=== PATIENT | female | born 1965 ===

== ENCOUNTER 2016-12-21 18:34 | Emergency (ER) | payer OTHER ==
[~2016-12-21] VITALS: Ht 162.6 cm; Wt 62.0 kg
[2016-12-21 18:38] VITALS: BP 114/65; PULSE 70; RESP 20; TEMP 98.2; O2SAT 97
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
[2016-12-21] MEDS ORDERED: IBUP-232 PO (19:05)
[2016-12-21] MEDS ORDERED: CYCL5TAB PO (19:05)
[2016-12-21 19:27] VITALS: BP 110/68
== END 2016-12-21 19:30 | disposition home or self-care (01) ==
LOC: PHEFT 18:34
DX: M54.6 Pain in thoracic spine (principal); R25.2 Cramp and spasm; G44.319 Acute post-traumatic headache, not intractable; V53.5XXA Driver of pick-up truck or van injured in collision with car, pick-up truck or van in traffic accident, initial encounter
CPT/HCPCS: 99283

== ENCOUNTER 2017-04-04 11:59 | Observation (INO) | payer OTHER ==
[2017-04-04] VITALS (10 sets, daily range): BP systolic 94–125; BP diastolic 51–61; PULSE 60–82; RESP 16–20; TEMP 97.6–98.4; O2SAT 98–100
[~2017-04-04] VITALS: Ht 162.6 cm; Wt 65.0 kg
[~2017-04-04 11:59] MED LIST: CYCL5TAB PO; IBUP-232 PO
[2017-04-04] MEDS ORDERED: ASPIRIN 325 MG TAB PO ONE (12:30)
[2017-04-04] MEDS ORDERED: NITROGLYCERIN 0.4 MG SL 25 TABS/BTL SL ONE (12:30)
[2017-04-04] MEDS ORDERED: SODIUM CHLORIDE 0.9% FLUSH 10 ML FLUSH IVF PRN (12:30)
[2017-04-04 12:49] LABS: AUTOMATED NEUTROPHIL # 3.1 TH/MM3 (1.8-7.7); BASOPHIL % 0.3 % (0.0-2.0); EOSINOPHIL # 0.4 TH/MM3 (0-0.4); EOSINOPHIL % 5.8 % (0.0-4.0); HEMATOCRIT 39.8 % (35.0-46.0); HEMO FLAGS DIFF FINAL; LYMPHOCYTE # 2.5 TH/MM3 (1.0-4.8); MEAN CORPUSCULAR HEMOGLOBIN 29.4 PG (27.0-34.0); MEAN CORPUSCULAR HGB CONC 33.4 % (32.0-36.0); MONO % 9.5 % (0.0-8.0); NEUT % 46.4 % (16.0-70.0); PLATELET COUNT 203 TH/MM3 (150-450); RED BLOOD COUNT 4.52 MIL/MM3 (4.00-5.30); RED CELL DISTRIBUTION WIDTH 12.6 % (11.6-17.2); WHITE BLOOD COUNT 6.7 TH/MM3 (4.0-11.0)
[2017-04-04 12:58] LABS: PROTHROMBIN TIME - PATIENT 10.5 SEC (9.8-11.6)
--- NOTE | 2017-04-04 13:06 | PD ---
HPI Chief Complaint: Chest Pain Time Seen by Provider: 13:02 Travel History International Travel<30 days: No Contact w/Intl Traveler<30days: No Traveled to known affect area: No History of Present Illness HPI 51-year-old female that presents to the ED for evaluation of chest pain. Per patient she's had this chest pain since . Per patient on she had more right-sided chest discomfort any went away so she didn't think much of it. Per patient she today was more gas or something else. Since yesterday she developed this left-sided pain that today radiated to the left back. Per patient she has a heaviness feeling to the left arm. She denies any symptoms like this before. She has no history of cardiac disease. She does have a history of secondhand smoking from significant other. Per patient she does have a history of menopause. No family history of heart disease. No shortness of breath with the pain. Per patient the pain is not severe and is 3 out of 10 when a for her to notice it. No other control use. No recent travel. No trauma. Pain is not reproducible with touch. Patient he took an aspirin yesterday but she doesn't routinely take one. She did not took one today. 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 [facility] Past Medical History Asthma: Yes Diminished Hearing: No Musculoskeletal: Yes (BACK AND NECK PAIN HX) Reproductive: Yes Tetanus Vaccination: > 5 Years Influenza Vaccination: No ?: Not Menopausal: Yes Past Surgical History Gynecologic Surgery: Yes Social History Alcohol Use: No Tobacco Use: No Substance Use: No (PT DENIES ) Allergies-Medications (Allergen,Severity, Reaction): Coded Allergies: No Known Allergies (Unverified , 04/04/17) Reported Meds & Prescriptions Reported Meds & Active Scripts Active No Active Prescriptions or Reported Medications Review of Systems Except as stated in HPI: all other systems reviewed are Neg Physical Exam Narrative GENERAL: SKIN: Warm and dry. HEAD: Atraumatic. Normocephalic. EYES: Pupils equal and round. No scleral icterus. No injection or drainage. ENT: No nasal bleeding or discharge. Mucous membranes pink and moist. Tongue is midline. No uvula deviation. NECK: Trachea midline. No JVD. CARDIOVASCULAR: Regular rate and rhythm. No murmurs, S3, S4. Chest pain is not reproducible with touch. RESPIRATORY: No accessory muscle use. Clear to auscultation. Breath sounds equal bilaterally. GASTROINTESTINAL: Abdomen soft, non-tender, nondistended. Hepatic and splenic margins not palpable. MUSCULOSKELETAL: Extremities without clubbing, cyanosis, or edema. No obvious deformities. Full range of motion of the upper and lower extremities bilaterally. 2+ pulses bilaterally. NEUROLOGICAL: Awake and alert. No obvious cranial nerve deficits. Motor grossly within normal limits. Five out of 5 muscle strength in the arms and legs. Normal speech. PSYCHIATRIC: Appropriate mood and affect; insight and judgment normal. Data Data Last Documented VS Vital Signs Date Time Temp Pulse Resp B/P Pulse Ox O2 Delivery O2 Flow Rate FiO2 04/04/17 12:40 78 16 98/58 100 Room Air 04/04/17 12:02 97.6 Orders Electrocardiogram (04/04/17 12:19) Basic Metabolic Panel (Bmp) (04/04/17 12:19) Ckmb (Isoenzyme) Profile (04/04/17 12:19) Complete Blood Count With Diff (04/04/17 12:19) Magnesium (Mg) (04/04/17 12:19) Prothrombin Time / Inr (Pt) (04/04/17 12:19) Act Partial Throm Time (Ptt) (04/04/17 12:19) Troponin I (04/04/17 12:19) Chest, Single Ap (04/04/17 12:19) Ecg Monitoring (04/04/17 12:19) Bilateral Bp Monitoring (04/04/17 12:19) Iv Access Insert/Monitor (04/04/17 12:19) Oximetry (04/04/17 12:19) Oxygen Administration (04/04/17 12:19) Aspirin (Aspirin) (04/04/17 12:30) Sodium Chloride 0.9% Flush (Ns Flush) (04/04/17 12:30) Nitroglycerin Sl (Nitrostat Sl) (04/04/17 12:30) Admit Order (Ed Use Only) (04/04/17 14:14) Labs Laboratory Tests Test 04/04/17 12:35 White Blood Count 6.7 TH/MM3 Red Blood Count 4.52 MIL/MM3 Hemoglobin 13.3 GM/DL Hematocrit 39.8 % Mean Corpuscular Volume 88.0 FL Mean Corpuscular Hemoglobin 29.4 PG Mean Corpuscular Hemoglobin 33.4 % Concent Red Cell Distribution Width 12.6 % Platelet Count 203 TH/MM3 Mean Platelet Volume 9.6 FL Neutrophils (%) (Auto) 46.4 % Lymphocytes (%) (Auto) 38.0 % Monocytes (%) (Auto) 9.5 % Eosinophils (%) (Auto) 5.8 % Basophils (%) (Auto) 0.3 % Neutrophils # (Auto) 3.1 TH/MM3 Lymphocytes # (Auto) 2.5 TH/MM3 Monocytes # (Auto) 0.6 TH/MM3 Eosinophils # (Auto) 0.4 TH/MM3 Basophils # (Auto) 0.0 TH/MM3 CBC Comment DIFF FINAL Differential Comment Prothrombin Time 10.5 SEC Prothromb Time International 1.0 RATIO Ratio Activated Partial 28.0 SEC Thromboplast Time Sodium Level 140 MEQ/L Potassium Level 4.5 MEQ/L Chloride Level 106 MEQ/L Carbon Dioxide Level 28.0 MEQ/L Anion Gap 6 MEQ/L Blood Urea Nitrogen 14 MG/DL Creatinine 0.47 MG/DL Estimat Glomerular Filtration 139 ML/MIN Rate Random Glucose 95 MG/DL Calcium Level 9.3 MG/DL Magnesium Level 2.3 MG/DL Total Creatine Kinase 94 U/L Troponin I LESS THAN 0.02 NG/ML MDM Medical Decision Making Medical Screen Exam Complete: Yes Emergency Medical Condition: Yes Medical Record Reviewed: Yes Interpretation(s) EKG shows sinus rhythm with no sign of acute ischemia or arrhythmia read by me and attending. CBC & BMP Diagram 04/04/17 12:35 troponin and CKMB WNL Last Impressions Chest X-Ray 04/04/17 1219 Signed Impressions: Service Date/Time: March 12:38 - CONCLUSION: No acute disease. Tyrone Call MD Differential Diagnosis Chest pain versus a typical chest pain versus ACS versus angina versus pneumonia versus electrolyte abnormality Narrative Course 51-year-old female that presents to the ED for evaluation of chest pain. Patient was properly examined and was found to have signs and symptoms concerning for ACS. Labs and imaging ordered. Patient was given aspirin as well as nitroglycerin with improvement of discomfort on the chest. Labs and imaging here were essentially unremarkable. Patient does have the risk factor of age. Her symptoms concerning for heart disease and she has not had a stress test. Do recommend admission to the chest pain center. Patient is in agreement with this plan. Patient was admitted to the chest pain center. Diagnosis Primary Impression: Chest pain in adult Admitting Information Admitting Physician Requests: Observation Scripts No Active Prescriptions or Reported Meds Colt Cherry Apr 04, 2017 13:06
[2017-04-04 13:10] LABS: ANION GAP 6 MEQ/L (5-15); BLOOD UREA NITROGEN 14 MG/DL (7-18); CHLORIDE 106 MEQ/L (98-107); GLOMERULAR FILTRATION RATE 139 ML/MIN (>89); MAGNESIUM 2.3 MG/DL (1.5-2.5); POTASSIUM 4.5 MEQ/L (3.5-5.1); SODIUM (NA) 140 MEQ/L (136-145)
[2017-04-04 13:16] LABS: CREATINE KINASE 94 U/L (26-192)
--- NOTE | 2017-04-04 13:30 | RADRPT ---
EXAM DATE/TIME: 04/04/2017 12:38 [facility] COMPARISON: No previous studies available for comparison. INDICATIONS : Pain started yesterday on the right side of the chest, today pain is on the left side of the chest, n onsmoker, no chest surgery MEDICAL HISTORY : None. SURGICAL HISTORY : None. ENCOUNTER: Initial ACUITY: 2 days PAIN SCORE: 8/10 LOCATION: Bilateral chest FINDINGS: A single view of the chest demonstrates the lungs to be symmetrically aerated without evidence of mas s, infiltrate or effusion. The cardiomediastinal contours are unremarkable. Mild degenerative change s and scoliosis of the thoracic spine are noted. CONCLUSION: No acute disease. Tyrone Call MD on April 04, 2017 at 13:27 Board Certified Radiologist. This report was verified electronically.
--- NOTE | 2017-04-04 14:02 | EKG ---
Date Performed: 04/04/2017 Time Performed: 12:39:12 PTAGE: 51 years EKG: BASELINE ARTIFACT PRESENT. Sinus rhythm NORMAL ECG NO PREVIOUS TRACING DOCTOR: Mich Keenan Interpretating Date/Time 04/04/2017 14:00:36
[2017-04-04] MEDS ORDERED: ONDANSETRON HCL 4 MG/2 ML VIAL IV PRN (14:45)
[2017-04-04] MEDS ORDERED: ACETAMINOPHEN 500 MG CPLT PO PRN (14:45)
[2017-04-04] MEDS ORDERED: NITROGLYCERIN 0.4 MG SL 25 TABS/BTL SL PRN (14:45)
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
[2017-04-04] MEDS ORDERED: RESP: ALBUTEROL 2.5 MG/3 ML NEB (PRN) NEB (16:00)
[2017-04-04 16:26] LABS: CREATINE KINASE 91 U/L (26-192)
[2017-04-04] MEDS: RESP: ALBUTEROL 2.5 MG/3 ML NEB (SCH) NEB ×2 (16:30→20:44)
[2017-04-04 20:42] LABS: CREATINE KINASE 179 U/L (26-192)
[2017-04-04 20:55] LABS: CKMB 0.5 NG/ML (0.5-3.6)
[2017-04-04] MEDS: SODIUM CHLORIDE 0.9% FLUSH 10 ML FLUSH IV FLUSH SCH (21:00)
[2017-04-05 00:22] VITALS: BP 87/54; PULSE 77; RESP 18; TEMP 98; O2SAT 98
[2017-04-05 00:36] VITALS: BP 92/59
[2017-04-05] MEDS: RESP: ALBUTEROL 2.5 MG/3 ML NEB (SCH) NEB ×2 (04:24→10:00)
[2017-04-05 05:37] VITALS: BP 94/58; PULSE 72; RESP 22; TEMP 98.1; O2SAT 99
[2017-04-05 07:21] VITALS: BP 104/54; PULSE 73; RESP 16; TEMP 96.8; O2SAT 99
[2017-04-05 08:05] VITALS: PULSE 69
[2017-04-05] MEDS ORDERED: ASPIRIN 325 MG TAB PO SCH (09:00)
[2017-04-05] MEDS ORDERED: KETOROLAC TROMETHAMINE 30 MG/ML (IVP) VIAL IV PUSH ONE (09:00)
--- NOTE | 2017-04-05 09:33 | EKG ---
Date Performed: 04/04/2017 Time Performed: 21:06:07 PTAGE: 51 years EKG: Sinus rhythm POSSIBLE RIGHT VENTRICULAR CONDUCTION DELAY BORDERLINE ECG PREVIOUS TRACING : 04/04/2017 15.29 Since previous tracing, no significant change noted DOCTOR: Michael Colbert Interpretating Date/Time 04/05/2017 09:30:37
--- NOTE | 2017-04-05 09:37 | TR ---
Date Performed: 04/04/2017 Time Performed: 18:21:52 DOCTOR: Michael Colbert DRUG LIST: CLINICAL HISTORY: CHEST PAIN REASON FOR TEST: REASON FOR ENDING: OBSERVATION: CONCLUSION: Pieter protocol completed. Stopped sec to reaching target heart rate and leg fatigue. Maximum WB=627 Target HR Achieved=86.0% Maximum DO=204/62 Total Exercise Time=5:36. No worsening marti st pain. St segment upsloping. Good exercise tolerance. Normal bp response. Recovery quick and unrema rkable. COMMENTS: Patient exercised using the Pieter protocol. No electrocardiographic changes were seen to suggest ischemia. Hemodynamic response to exercise was normal. No significant arrhythmia was prese nt.
--- NOTE | 2017-04-05 09:37 | EKG ---
Date Performed: 04/04/2017 Time Performed: 15:29:16 PTAGE: 51 years EKG: SINUS BRADYCARDIA BORDERLINE ECG PREVIOUS TRACING : 04/04/2017 12.39 Since previous tracing, no significant change noted DOCTOR: Michael Colbert Interpretating Date/Time 04/05/2017 09:35:09
[2017-04-05] MEDS: SODIUM CHLORIDE 0.9% FLUSH 10 ML FLUSH IV FLUSH SCH (11:22)
--- NOTE | 2017-04-05 11:27 | RADRPT ---
EXAM DATE/TIME: 04/05/2017 08:49 [facility] COMPARISON: No previous studies available for comparison. INDICATIONS : Left sided chest pain for one day. Angina DOSE: 25.4 mCi Tc99m Myoview at stress 8.1 mCi Tc99m Myoview at rest REST HEART RATE: 87 BPM TARGET HEART RATE: 143 BPM MAX HEART RATE: 150 BPM REST BLOOD PRESSURE: 104/70 mmHg MAX BLOOD PRESSURE: 140/68 mmHg EJECTION FRACTION: > 70% MEDICAL HISTORY : Asthma. SURGICAL HISTORY : None. ENCOUNTER: Initial ACUITY: 1 day PAIN SCALE: 3/10 LOCATION: Left chest TECHNIQUE: The patient underwent upright treadmill exercise in the chest pain center. Continuous ECG tracing wa s monitored during stress. Gated SPECT imaging was performed after stress, and conventional SPECT im aging was performed at rest. The examination was performed on a SPECT/CT scanner, both attenuation-c orrected and non-corrected datasets were reviewed. FINDINGS: DISTRIBUTION: The maximum perfused segment at stress is in the anterior lateral wall. PERFUSION STUDY: The pattern of perfusion at stress is within normal limits. GATED STUDY: There is intact wall motion and thickening without hypokinetic or dyskinetic segments. CONCLUSION: Negative for stress-induced ischemia. RISK CATEGORY: Low (<1% Annual Mortality Rate) Haider Olvera MD FACR on April 05, 2017 at 11:24 Board Certified Radiologist. This report was verified electronically.
--- NOTE | 2017-04-05 11:52 | HHI.DCPOC ---
Discharge Care Plan Diagnosis: (1) Chest pain Goals to Promote Your Health * To prevent worsening of your condition and complications * To maintain your health at the optimal level Directions to Meet Your Goals Take your medications as prescribed Follow your dietary instruction Follow activity as directed Keep your appointments as scheduled Take your immunizations and boosters as scheduled If your symptoms worsen call your PCP, if no PCP go to Urgent Care Center or Emergency Room Smoking is Dangerous to Your Health. Avoid second hand smoke Call the 24-hour hour crisis hotline for domestic abuse at Dylon Herbert Apr 05, 2017 11:52
--- NOTE | 2017-04-05 15:30 | TR ---
Date Performed: 04/05/2017 Time Performed: 10:03:49 DOCTOR: Michael Colbert DRUG LIST: CLINICAL HISTORY: CHEST PAIN REASON FOR TEST: Chest pain REASON FOR ENDING: OBSERVATION: CONCLUSION: SHAKEEL PROTOCOL NUCLEAR ETT. NO CP. MILD SOB. Maximum EK=983 % Max HR Achieved=89.0% Maximum LL=380/68 Total Exercise Time=6:32 COMMENTS: See corresponding Nuclear Medicine report. No evidence of ischemia on treadmill.
== END 2017-04-05 13:57 | disposition home or self-care (01) ==
LOC: NEPC 11:59 → NEDA 14:16 → NEPGCP 15:43
PROVIDERS: ADMIT Internal Medicine Cardiovascular Disease; ATTEND Internal Medicine Cardiovascular Disease
DX: R07.89 Other chest pain (principal); I20.9 Angina pectoris, unspecified; R00.1 Bradycardia, unspecified; J45.909 Unspecified asthma, uncomplicated; M54.9 Dorsalgia, unspecified; M54.2 Cervicalgia; G89.29 Other chronic pain
CPT/HCPCS: 71010; 78452; 80048; 82550; 82552; 83735; 84484; 85025; 85610; 85730; 93005; 93017; 94640; 94664; 99285; A9502; G0378; J7613